=== PATIENT | female | born 1975 | race Hispanic/Latino ===

== ENCOUNTER 2022-11-03 13:16 | Emergency (ER) | payer OTHER ==
[~2022-11-03] VITALS: Ht 162.6 cm; Wt 117.9 kg
[2022-11-03] MEDS ORDERED: VALTREX1000 MG PO (15:16)
== END 2022-11-03 15:35 | disposition home or self-care (01) ==
LOC: ER 13:23
DX: M54.9 Dorsalgia, unspecified (principal); B02.9 Zoster without complications; E11.9 Type 2 diabetes mellitus without complications
CPT/HCPCS: 99282

== ENCOUNTER 2023-02-27 14:55 | Emergency (ER) | payer OTHER ==
[~2023-02-27] VITALS: Ht 162.6 cm; Wt 117.9 kg
[~2023-02-27 14:55] MED LIST: VALTREX1000 MG PO
[2023-02-27 15:01] VITALS: O2SAT 99
[2023-02-27] MEDS ORDERED: AMOXICILLIN500 MG PO (15:08)
[2023-02-27] MEDS ORDERED: ONDANSETRON ODT4 MG PO (15:10)
== END 2023-02-27 15:12 | disposition home or self-care (01) ==
LOC: ER 14:58
DX: K04.7 Periapical abscess without sinus (principal); I10 Essential (primary) hypertension; E11.9 Type 2 diabetes mellitus without complications
CPT/HCPCS: 99282

== ENCOUNTER → 2023-03-17 | Outpatient (CLI) | payer OTHER ==
[~2023-03-17] MED LIST changes: +AMOXICILLIN500 MG PO; +ONDANSETRON ODT4 MG PO
== END ==
LOC: MAMMO 10:32
PROVIDERS: ATTEND Internal Medicine
DX: Z12.31 Encounter for screening mammogram for malignant neoplasm of breast (principal)
CPT/HCPCS: 77067